=== PATIENT | female | born 1945 | race Caucasian/White ===

== ENCOUNTER 2017-03-24 10:26 | Outpatient (CLI) | payer OTHER ==
[~2017-03-24 10:26] MED LIST: CIPRO500 MG PO; METFORMIN HCL500 MG; SURFAK240 M1 PO; ULTRACET PO; ZOCOR40 MG
== END 2017-03-24 15:00 | disposition home or self-care (01) ==
LOC: RAD 10:26
DX: M25.561 Pain in right knee (principal)